=== PATIENT | female | born 1970 | race Hispanic/Latino ===

== ENCOUNTER 2021-01-06 16:00 | Observation (INO) | payer OTHER ==
[~2021-01-06] VITALS: Ht 162.6 cm; Wt 96.6 kg
[2021-01-06 10:52] LABS: BASOPHILS % (AUTO) 0.3 % (0.0-5.0); EOSINOPHILS % (AUTO) 1.1 % (0.0-8.0); HEMATOCRIT 38.1 % (36-48); LYMPHOCYTES % (AUTO) 24.2 % (21.0-51.0); MEAN CORPUSCULAR HEMOGLOBIN 29.7 pg (27.0-33.0); MEAN CORPUSCULAR HGB CONC 32.5 g/dL (32.0-36.0); MEAN CORPUSCULAR VOLUME 91.4 fL (79-99); MONOCYTES % (AUTO) 7.8 % (3.0-13.0); NEUTROPHILS % (AUTO) 66.4 % (40.0-77.0); PLATELET COUNT (AUTO) 260 K/uL (130-400); RED BLOOD CELL COUNT(AUTO) 4.17 MIL/uL (4.00-5.50); RED CELL DISTRIBUTION WIDTH 13.8 % (11.0-15.5); WHITE BLOOD COUNT (AUTO) 8.8 K/uL (4.8-10.8)
[2021-01-06 11:04] LABS: CREATININE 0.5 mg/dL (0.5-1.5); POTASSIUM 3.7 mmol/L (3.5-5.1)
[2021-01-12 10:34] VITALS: BP 166/87
[2021-01-13] VITALS (18 sets, daily range): BP systolic 132–175; BP diastolic 66–86
[2021-01-13] MEDS ORDERED: CEFOXITIN SODIUM 2 GM VIAL IVP SCH (06:00)
[2021-01-13] MEDS ORDERED: CYANOCOBALAMIN (VITAMIN B-12) 1000 MCG/ML 1ML VIAL IM SCH (06:00)
[2021-01-13] MEDS ORDERED: LACTATED RINGERS 1000ML 1,000 ML IV SCH (06:00)
[2021-01-13] MEDS ORDERED: HEPARIN 5,000 UNIT VIAL SQ SCH (06:00)
[2021-01-13] MEDS ORDERED: 0.9%NACL 1000ML 1,000 ML IV ONE (07:35)
[2021-01-13] MEDS ORDERED: ONDANSETRON 4MG INJ ONE ×2 (07:50→11:08)
[2021-01-13] MEDS ORDERED: DEXAMETHASONE SOD PHOSPHATE 10MG/ML 1ML VIAL ONE (07:50)
[2021-01-13] MEDS ORDERED: LIDOCAINE PF 100MG/5ML (2%) SYRINGE 5ML ONE ×2 (07:50→07:52)
[2021-01-13] MEDS ORDERED: SUCCINYLCHOLINE CHLORIDE 20 MG/ML 10 ML VIAL ONE ×2 (07:50→07:52)
[2021-01-13] MEDS ORDERED: NEOSTIGMINE 5MG/5ML SYR IV ONE (07:51)
[2021-01-13] MEDS ORDERED: FENTANYL CITRATE PF 50 MCG/1 ML 2ML VIAL ONE (07:51)
[2021-01-13] MEDS ORDERED: ROCURONIUM 10MG/1ML SYR 10 MG/ML ML ONE (07:51)
[2021-01-13] MEDS ORDERED: PROPOFOL 10 MG/ML 20ML VIAL IV ONE ×2 (07:51→08:33)
[2021-01-13] MEDS ORDERED: GLYCOPYRROLATE 1 MG/5 ML SYRINGE ONE (07:51)
[2021-01-13] MEDS ORDERED: MIDAZOLAM HCL 1 MG/ML 2ML VIAL ONE (07:51)
[2021-01-13] MEDS ORDERED: BUPIVACAINE/EPI/PF 0.5% 30ML VIAL IJ ONE (08:43)
[2021-01-13] MEDS ORDERED: METHYLENE BLUE 5 MG/ML AMP ONE ×2 (08:43→09:31)
[2021-01-13] MEDS ORDERED: MEPERIDINE-PF 25 MG/ML SYG ONE (10:23)
[2021-01-13] MEDS ORDERED: MORPHINE 2 MG SYG IM PRN ×2 (14:30)
[2021-01-13] MEDS ORDERED: MEPERIDINE-PF 25 MG/ML SYG IV PRN (14:30)
[2021-01-13] MEDS ORDERED: HYDROMORPHONE PCA 10 MG/50 ML 50 ML IV SCH (14:30)
[2021-01-13] MEDS ORDERED: MORPHINE 4 MG SYG IM PRN (14:30)
[2021-01-13] MEDS ORDERED: PROMETHAZINE HCL 25 MG/ML 1ML AMPULE IM PRN ×4 (14:30)
[2021-01-13] MEDS: FAMOTIDINE 20MG VIAL IV SCH (20:57)
[2021-01-13] MEDS: INSULIN HUMULIN R 100 UNIT/ML 3ML SQ SCH (21:00)
[2021-01-13] MEDS: HEPARIN 5,000 UNIT VIAL SQ SCH (21:56)
[2021-01-14] MEDS: LACTATED RINGERS 1000ML 1,000 ML IV SCH ×2 (00:22→07:36)
[2021-01-14 00:25] VITALS: BP 159/88
[2021-01-14 03:42] VITALS: BP 147/79
[2021-01-14 07:14] VITALS: BP 150/72
[2021-01-14] MEDS: INSULIN HUMULIN R 100 UNIT/ML 3ML SQ SCH (07:30)
[2021-01-14] MEDS: FAMOTIDINE 20MG VIAL IV SCH (08:38)
[2021-01-14] MEDS: HEPARIN 5,000 UNIT VIAL SQ SCH (09:48)
[2021-01-14 11:16] VITALS: BP 146/78
[2021-01-14] MEDS ORDERED: PROM6.2514 PO (12:24)
[2021-01-14] MEDS ORDERED: ONDA4TAB4 PO (12:26)
[2021-01-14] MEDS ORDERED: ACET1TAB25 PO (12:30)
== END 2021-01-14 14:10 | disposition home or self-care (01) ==
LOC: EDSTATUS 16:00 → DAHIP 01-13 07:22 → WSH 01-13 11:50
PROVIDERS: ADMIT Surgery; ATTEND Surgery
DX: E66.01 Morbid (severe) obesity due to excess calories (principal); Z20.822 Contact with and (suspected) exposure to COVID-19; I10 Essential (primary) hypertension; E11.9 Type 2 diabetes mellitus without complications; E03.9 Hypothyroidism, unspecified; K66.0 Peritoneal adhesions (postprocedural) (postinfection); Z79.84 Long term (current) use of oral hypoglycemic drugs; Z79.899 Other long term (current) drug therapy
CPT/HCPCS: 36415; 43775; 80048; 82948 ×6; 85025; 87635; 93005; 96372 ×2; 96374; 96376; A4215 ×2; A4221; A4222; A4223; A4649 ×4; A4663; A4930 ×2; A6260; G0378 ×24; G0379; J0330 ×2; J0694; J1100; J1644 ×3; J2001 ×2; J2175; J2250; J2405 ×2; J2550; J2704 ×2; J2710; J3010; J3420; J3490 ×4; J7030 ×2; J7120 ×2; Q9968 ×2